=== PATIENT | male | born 1940 | race Caucasian/White ===

== ENCOUNTER 2021-02-19 13:01 | Inpatient (IN) | payer MEDICARE ==
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
[2021-02-19] MEDS ORDERED: CRESTOR5 MG PO (13:33)
[2021-02-19] MEDS ORDERED: ULTRAM50 MG PO (13:33)
[2021-02-19] MEDS ORDERED: K-TAB10 MEQ PO (13:33)
[2021-02-19] MEDS ORDERED: CELEXA20 MG PO (13:34)
[2021-02-19] MEDS ORDERED: GABAPENTIN300 MG PO (13:34)
[2021-02-19] MEDS ORDERED: PROTONIX20 MG PO (13:34)
[2021-02-19] MEDS ORDERED: ALBUTEROL2.5 MG/3 M INH (13:37)
[2021-02-19 14:07] LABS: BASOPHILS 0.4 % (0-2); CALCIUM 10.5 mg/dL (8.5-10.1); CARBON DIOXIDE 22.6 mmol/L (21.0-32.0); CREATININE - SERUM 1.4 mg/dL (0.6-1.3); EOSINOPHILS 0.6 % (0-7); HEMATOCRIT 40.8 % (42.0-54.0); HEMOGLOBIN 13.6 g/dL (13.5-17.5); IMMATURE GRANULOCYTES 0.1 % (0-5); LYMPHOCYTE ABS# 1.26 10x3/uL (1.32-3.57); LYMPHOCYTES 18.6 % (15-50); MCH 30.8 pg (26.0-34.0); MCHC 33.3 g/dL (31.0-37.0); MCV 92.3 fL (80.0-100.0); MEAN PLATELET VOLUME 8.9 fL (7.4-10.4); MONOCYTES 9.3 % (2-11); NEUTROPHIL ABS# 4.82 10x3/uL (1.78-5.38); PLATELET COUNT 353 10x3/uL (130-400); POTASSIUM - SERUM 3.6 mmol/L (3.5-5.1); RBC 4.42 10x6/uL (4.20-6.10); WBC 6.8 10x3/uL (4.8-10.8)
[2021-02-19 14:31] LABS: INR 1.08 (0.85-1.17)
[2021-02-19 14:38] LABS: BILIRUBIN - TOTAL 0.92 mg/dL (0.2-1.3); CHOL - HDL RATIO 2.1 ratio (2.3-4.9); LDL-HDL RATIO 0.9 ratio (1.5-3.5); MAGNESIUM - SERUM 2.3 mg/dL (1.8-2.4); THYROID STIMULATING HORMONE 1.18 uIU/mL (0.36-3.74)
--- NOTE | 2021-02-19 14:51 | NUR ---
DHS WORKER HEBER AT BEDSIDE.
[2021-02-19 15:41] LABS: BILIRUBIN NEGATIVE (NEGATIVE); KETONE SMALL mg/dL (NEGATIVE); NITRITE NEGATIVE (NEGATIVE); UROBILINOGEN NORMAL mg/dL (< 2)
[2021-02-19 15:46] LABS: BACTERIA FEW HPF (NONE SEEN)
[2021-02-19 16:10] LABS: UDS - AMPHET NEGATIVE QUAL (NEGATIVE); UDS - BARB NEGATIVE QUAL (NEGATIVE); UDS - BENZO NEGATIVE QUAL (NEGATIVE); UDS - COCAINE NEGATIVE QUAL (NEGATIVE); UDS - OPIATE NEGATIVE QUAL (NEGATIVE); UDS - PCP NEGATIVE QUAL (NEGATIVE); UDS - THC NEGATIVE QUAL (NEGATIVE)
[2021-02-19 22:26] VITALS: BP 156/65
[2021-02-19 23:04] VITALS: BP 156/65; BMI 20.9
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
[2021-02-20 08:00] VITALS: BP 164/60
--- NOTE | 2021-02-20 10:40 | NUR ---
NEW ORDER FROM DR. PRADO FROM [facility].
--- NOTE | 2021-02-20 10:44 | NUR ---
NURSE REPORTED TO DR. PRADO PT COUGHING ON THIN LIQUIDS AT THIS TIME. WILL CONSULT [facility].
--- NOTE | 2021-02-20 11:00 | NUR ---
NURSE SPOKE TO JANNY AT [facility] IN [place] TO VERIFY PTS MED LIST AT THIS TIME. SHE STATED HE HAD NO MEDICATIONS FILLED THERE EXCEPT ON 01/18/21. SHE THIN[facility] THAT [facility] NURSE STATED SHE WOULD ATTEMPT TO CALL THE [facility] FOR MED LIST.
--- NOTE | 2021-02-20 11:23 | NUR ---
NURSE SPOKE WITH EMA WOOD AT [facility] ABOUT PT MEDICATION LIST. HE WAS UNAWARE. NURSE STATED SHE HAD SPOKEN TO [facility] AND THE PHARMACY DID NOT HAVE AN UPDATED MED LIST DUE TO PT MEDICATIONS [facility]ING FROM THE [facility]. NURSE STATED IF MR. WOOD COULD OBTAIN A MED LIST. HE STATED HE WOULD ATTEMPT TO OBTAIN A MEDICATION LIST.
--- NOTE | 2021-02-20 11:49 | NUR ---
NURSE BANDAGE SKIN TEAR ON ELBOW AT THIS TIME.
[2021-02-20 13:39] VITALS: Wt 60.7 kg
--- NOTE | 2021-02-20 15:53 | NUR ---
THIS NURSE SPOKE WITH [facility] AT THIS TIME. FAXING OVER A COPY OF PTS MEDICATIONS PER REQUESTED.
--- NOTE | 2021-02-20 16:00 | NUR ---
[facility] LIDIA Bowen HERE TO SEE PT AT THIS TIME. NECTAR THICKEN LIQUIDS ORDERED.
--- NOTE | 2021-02-20 16:15 | NUR ---
Patient rec'd this am lying on the bed. He is very thin and is bent over at the waist and his bent over gait puts him a fall risk. He is very confused and will keep coming out of his room, thinking the nurse desk, is the "bank" and he needs "money".He is in droplet precaution for pending covid admission results. He will ask the staff the same questions over and over again. He has been very coorperative and can be directed and redirected as needed. He is med compliant and took his med whole. He is on an ABT. He has skin tears to his left posterior forearms and a reddened coccyx.
--- NOTE | 2021-02-20 17:02 | NUR ---
[facility] AT THIS [facility]. MADE DR. VAZQUEZ AWARE OF MEDICATION LIST.
[2021-02-20] MEDS ORDERED: ACETAMINOPHEN500 M1 PO (17:15)
[2021-02-20] MEDS ORDERED: BAYER CHEWABLE81 MG PO (17:16)
[2021-02-20] MEDS ORDERED: CALCIUM 600 +1 EAC3 PO (17:17)
[2021-02-20] MEDS ORDERED: VITAMIN B-12100 MCG PO (17:18)
[2021-02-20] MEDS ORDERED: VOLTAREN100 GM TOPICAL (17:19)
[2021-02-20] MEDS ORDERED: CYMBALTA60 MG PO (17:20)
[2021-02-20] MEDS ORDERED: DONEPEZIL HCL10 MG PO (17:20)
[2021-02-20] MEDS ORDERED: PROSCAR5 MG PO (17:21)
[2021-02-20] MEDS ORDERED: FLUTICASONE PRO16 GM NASAL (17:22)
[2021-02-20] MEDS ORDERED: LIDODERM 5 %1 PATCH TRANSDERM (17:22)
[2021-02-20] MEDS ORDERED: PROCARDIA XL60 MG PO (17:23)
[2021-02-20] MEDS ORDERED: K-DUR20 MEQ PO (17:23)
[2021-02-20] MEDS ORDERED: CRESTOR10 MG PO (17:24)
[2021-02-20] MEDS ORDERED: DIOVAN160 MG PO (17:24)
[2021-02-20 20:00] VITALS: BP 154/80
--- NOTE | 2021-02-20 20:36 | NUR ---
RECEIVED PATIENT IN HIS ROOM, HE HAS SOME CONFUSION, HE THINKS HE IS AT [facility] AND THAT HE IS HERE TO RUN A RACE, HE ALSO SAID "I DON'T HAVE DEMENTIA ANYMORE, I HAD IT 3 YEARS AGO BUT I' HEALED NOW". COMPLIANT WITH MEDS. WILL FOLLOW POC
[2021-02-21 08:13] LABS: RAPID PLASMA REAGIN Non Reactive (Non Reactive)
[2021-02-21 08:55] VITALS: BP 154/58
--- NOTE | 2021-02-21 09:46 | NUR ---
[facility] CALLED TO OBTAIN PT ADMIT DATE, DIAGNOSIS AND WALKING DRAGLINE OILER NAME. NURSE SPOKE WITH SOICAL WORKER AND PROVIDED INFORMATION FOR [facility]. SHE STATED THEY WERE DOING PHYSICAL THERAPY FOR PT IN THE HOME. SHE THANKED NURSE.
--- NOTE | 2021-02-21 14:45 | NUR ---
PT BECAME AGGRESSIVE WITH STAFF MEMEBER STATING SHE RAN OVER HER FOOT WITH THE W/C. UNABLE TO REDIRECT BEHAVIORS. HALDOL 2 MG IM GIVEN PER ORDER. WILL CONT TO MONITOR BEHAVIORS.
--- NOTE | 2021-02-21 15:45 | NUR ---
MEDICATION NOT EFFECTIVE AT THIS TIME. CONSTANT REDIRECT AND 1:1 STAFF AT ALL TIMES.
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
--- NOTE | 2021-02-21 17:50 | NUR ---
PT SITTING IN NURSES STATION AT THIS TIME. PT IS RESTLESS, ARGUMENTATIVE AND UNABLE TO REDIRECT. CONFUSED. ALERT TO SELF ONLY. DIFFCULT TO REDIRECT. REORIENT AND REDIRECT NEEDED AND OFTEN. UNSTEADY GAIT. UNABLE TO MAKE NEEDS KNOWN. PT IN VISUAL SIGHT AT ALL TIMES. COMPLIANT WITH MEDS, VITALS AND ASSESSMENTS. CHAIR AND BED ALARM IN PLACE AND ACTIVE. WILL CONT PLAN OF CARE.
[2021-02-21 20:00] VITALS: BP 147/48
--- NOTE | 2021-02-22 01:40 | NUR ---
B) Patient is alert and oriented to self, very confused and restless, unable to be redirected, poor short term memory, constant 1:1 when awake, I) Administered scheduled medications as ordered, monitored for safety, redirected as needed, R) Medication compliant, sleeping soon after HS medications wrapped in warm blankets, P) Continue plan of care.
--- NOTE | 2021-02-22 08:34 | NUR ---
LAB CALLED TO REPORT NEGATIVE SARS-19
[2021-02-22 09:24] LABS: ANION GAP 13.3 mmol/L (8-16); CALCIUM 9.5 mg/dL (8.5-10.1); CARBON DIOXIDE 28.1 mmol/L (21.0-32.0); CREATININE - SERUM 1.2 mg/dL (0.6-1.3); POTASSIUM - SERUM 3.4 mmol/L (3.5-5.1)
[2021-02-22 10:00] VITALS: BP 137/60
--- NOTE | 2021-02-22 17:23 | NUR ---
Patient has been in the dayroom most all day and started out with being pleasant with the staff but as the afternoon progressed, he has become very aggressive and augumentive. He will continue to ask questions to the staff but he will not wait for their response and then will argue they didn't answer him. He has called the staff "a bitch", he has yelled at the staff and attempted to manipulate them. The staff has attempted to redirect him and give him positive feeback with each behavior episode but he is being non re-directable. Cj MICHAEL given. Patient sitting quietly now.
[2021-02-22 20:00] VITALS: BP 148/59
--- NOTE | 2021-02-22 21:53 | NUR ---
PT ALERT AND ORIENTED TO SELF ONLY. RECEIVED IN A GERICHAIR OUTSIDE THE NURSES STATION. NO AGGRESSION NOTED. COMPLIANT WITH ALL MEDICATIONS. EASY TO REDIRECT. PROVIDED HS SNACK AND ASSISTED TO BED WITH WARM BLANKET. MONITOR FOR SAFETY.
[2021-02-23 08:45] VITALS: BP 155/73
--- NOTE | 2021-02-23 18:22 | NUR ---
ORIENTED TO SELF ONLY.COMPLIANT WITH STAFF AND MEDS.NO AGGRESSION OBSERVED TODAY.WILL CONTINUE WITH CURRENT PLAN OF CARE,MONITOR FOR CHANGES AND SAFETY.
[2021-02-23 20:00] VITALS: BP 165/66
--- NOTE | 2021-02-23 21:18 | NUR ---
PT IS ALERT AND ORIENTED TO SELF ONLY. POOR INSIGHT INTO HIS SITUATION. OBSERVED PT YELLING AT STAFF. STATED " I AM NOT GOING TO LISTEN TO YOU. I WANT TO SPEAK TO THE CARTON GLUING MACHINE OPERATOR." EASY TO REDIRECT BUT EASILY AGITATED. RESTLESS AND ATTEMPTS TO GET UP WITHOUT ASSIT. COMPLIANT WITH ALL HS MEDICATIONS. VERY UNSTEADY GAIT. MONITOR FOR SAFETY.
[2021-02-24 07:30] LABS: ANION GAP 13.7 mmol/L (8-16); CALCIUM 9.5 mg/dL (8.5-10.1); CARBON DIOXIDE 28.9 mmol/L (21.0-32.0); CREATININE - SERUM 1.1 mg/dL (0.6-1.3); POTASSIUM - SERUM 3.6 mmol/L (3.5-5.1)
[2021-02-24 08:22] VITALS: BP 148/56
--- NOTE | 2021-02-24 15:07 | NUR ---
GT BELT, PATIENT MIN ASST TO GET UP TO BEDSIDE AND TO STAND. PATIENT WALKED 110 FEET WITH MIN ASST USING WALKER, BUT PATIENT WOULD TAKE SHORT AND SHUFFLY STEPS AND PUSH WALKER TOO FAR AWAY FROM HIM, MAKING HIM MORE UNSTEADY.
--- NOTE | 2021-02-24 15:45 | NUR ---
Rec'd patient this am lying in bed. Fall alarm in place and functioning. He is A/O to his self. He has a lot of confusion. He is med compliant and takes his meds whole. He can be calm and cooperative to being impulsive, demanding, and sarcastic. He is not directable or redirectable most of the time. Staff will continue to encourage group activity participation.
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
--- NOTE | 2021-02-24 20:01 | NUR ---
RECEIVED IN BEDROOM. RESTING IN BED WITH EYES CLOSED. RESPONS TO VOICE. CALM AND COOPERATIVE WITH CARE AND ASSESSMENT. NO SIGNS OF AGGRESSION. REDIRECT AND REORIENT NEEDED. CONTINUES TO REST QUIETLY IN BED. CONTINUE PLAN OF CARE.
[2021-02-24 21:20] VITALS: BP 134/59
[2021-02-25 08:00] VITALS: BP 112/58
--- NOTE | 2021-02-25 08:54 | PN ---
PATIENT:ARLIN GRIFFITH MEDICAL RECORD: [id number] LOCATION:YESY [facility]enCharity112 ADMISSION DATE: 02/19/21 PROGRESS NOTE DATE OF SERVICE: 02/21/2021 SUBJECTIVE: The patient's case was discussed with staff. He has no new complaint. OBJECTIVE: The patient is disorganized and severely impaired cognitively. He has been very aggressive verbally and physically with staff. He also is an extremely high fall risk and is not following directions regarding safety. He is currently going to be treated with both mood stabilizing and anxiolytic medication. His prognosis is guarded. TRANSINT:[id number] Voice Confirmation ID: [id number] DOCUMENT ID: [id number] TADEO VAZQUEZ MD at 0854 CC: [id number] DICTATION DATE: 02/21/211657 LICENSED SALES PRODUCER: 02/21/212113 ADM IN [id number] [place] [address]
--- NOTE | 2021-02-25 10:02 | NUR ---
TJ SPOKE TO PT'S POA YOVANY RÍOS. HE PROVIDED THE POA PAPERWORK TO MEDICAL RECORDS. ELI STATED SHE SCANNED THEM IN. TJ GAVE POA PASSWORD AND NUMBER TO UNIT. PT WILL NEED TO BE PLACED INTO LTC DUE TO PT'S 'S CONDITION. YOVANY STATED HE WOULD CONTACT AND GIVE HER UNIT NUMBER TO CALL TO GET UPDATES ON PT. [facility] AND [facility] ARE NURSING HOMES POJerri WANTS REFERRALS SENT TO. TJ EDUCATED ON DISEASE PROGRESSION, DIFFERENT LEVELS OF CARE, PT'S CONDITION AND BEHAVIORS, THE IMPORTANCE OF A MEMORY CARE UNIT, AND UNIT ORIENTATION. NO OTHER NEEDS WERE VOICED AT THIS TIME.
--- NOTE | 2021-02-25 10:42 | NUR ---
Nutrition Follow-up: Diet: Regular [place] Thickened Liquids PO intake: ~86% average x last 8 meals recorded Last BM: 02/20/21 Wt: 128# (02/24/21); Admit Wt: 133# (02/19/21) Meds and labs reviewed. Noted -5# wt change. PO intake is adequate for now. Will continue to monitor wt trend. Recommend continue PO diet per CHILD STUDY TEAM DIRECTOR recommendations. RD will follow-up 02/27/21.
--- NOTE | 2021-02-25 11:42 | NUR ---
GT BELT, PATIENT MIN ASST TO STAND FROM WHEELCHAIR AND TO WALK IN POLO FOR 110 FEET USING WALKER, BUT PATIENT PUSHES THE WALKER TOO FAR IN FRONT OF HIM WHILE ALSO TAKING SHORT STEPS, MAKING HIM A FALL RISK.
--- NOTE | 2021-02-25 16:16 | NUR ---
PATIENT GETTING QUITE ANXIOUS ABOUT PUTTING GAS IN HIS CAR, BECOMING INCREASINGLY AGITATED. STATES THAT HIS CAR IS IN THE PARKING LOT AND HE MUST GO GAS IT UP SO THAT HE CAN GO TO [facility] [employer] WHICH IS ABOUT 100 MILES AWAY. HALDOL 2 MG ADMIN PO.
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
--- NOTE | 2021-02-25 20:44 | NUR ---
REECIVED IN BEDROOM. RESTING QUIETLY IN BED WITH EYES OPEN. CALM AND COOPERATIVE WITH CARE AND ASSESSMENT. NO SIGNS OF AGGRESSION. REDIRECT AND REORIENT NEEDED. NURSE IN ROOM AT BEDSIDE PASSING PM MEDS AT THIS TIME. CONTINUE PLAN OF CARE.
[2021-02-25 21:42] VITALS: BP 131/54
[2021-02-26 14:19] VITALS: BP 157/66
--- NOTE | 2021-02-26 14:19 | PN ---
PATIENT:ARLIN GRIFFITH MEDICAL RECORD: [id number] LOCATION:YESY [facility]112 ADMISSION DATE: 02/19/21 PROGRESS NOTE DATE OF SERVICE: 02/25/2021 SUBJECTIVE: The patient's case was discussed with staff. He has no new complaint. OBJECTIVE: The patient is in good behavioral control with limited insight about his condition. ASSESSMENT: Dementia. PLAN: The patient's is critically ill. There is a POA, who has been identified and will seek placement for the patient in the assisted. I agree with this level of care. He does need 24-hour a day supervision without any doubt, what is debatable is what situation is the least restrictive and as long as his is incapacitated, there does not appear to be anyone who could even begin to provide the services. TRANSINT:[id number] Voice Confirmation ID: [id number] DOCUMENT ID: [id number] TADEO VAZQUEZ MD at 1419 CC: [id number] DICTATION DATE: 02/25/21 1617 COMPUTER MECHANIC: 02/25/21 2302 ADM IN [facility] [address] [id number]
--- NOTE | 2021-02-26 16:59 | NUR ---
PT SITTING IN W/C AT THIS TIME. PT IS CONFUSED. REDIRECT AND REORIENT NEEDED. PT IS COOPERATIVE WITH STAFF AT TIMES. COMPLIANT WITH MEDS, VITALS AND ASSESSMENTS. PT CAN MAKE NEEDS KNOWN. PT CAN BE ARGUMENATIVE AT TIMES. REDIRECT BEHAVIOR. REQUIRES ASSISTANCE WITH ADLS. BED AND CHAIR ALARM IN PLACE AND ACTIVE. WILL CONT PLAN OF CARE.
--- NOTE | 2021-02-26 18:51 | NUR ---
PT CALLED FROM [facility] AT THIS TIME. [facility] NURSE GAVE PASSCODE. PT WAS HAPPY TO SPEAK WITH AT THIS TIME.
--- NOTE | 2021-02-26 20:16 | NUR ---
RECEIVED IN HALLWAY OUTSIDE OF NURSES STATION. SITTING CALM SOCIALIZING WITH A PEER. CALM AND COOPERATIVE WITH CARE AND ASSESSMENT. NO SIGNS OF AGGRESSION. REDIRECT AND REORIENT NEEDED. CONTINUES TO SIT CALMLY IN HALLWAY. CONTINUE PLAN OF CARE.
[2021-02-26 21:50] VITALS: BP 137/63
--- NOTE | 2021-02-27 08:00 | NUR ---
RECEIVED PATIENT IN BED WITH EYES CLOSED. RESPONDS TO VERBAL STIMULI. AWAKE AND ALERT TO PERSON ONLY AT THIS TIME. CALM AND COOPERATIVE WITH ASSESSMENT. PRESCRIBED MEDICATIONS PROVIDED ORDERED. MED COMPLIANT. NO AGGRESSION NOTED AT THIS TIME. PATIENT HAS LITTLE TO NO INSIGHT INTO HIS SITUATION. rEDIRECT AND REORIENT NEEDED. FALL PRECAUTIONS IN PLACE FOR SAFETY. WILL CONTINUE PLAN OF CARE.
[2021-02-27 09:22] VITALS: BP 174/70
--- NOTE | 2021-02-27 11:17 | NUR ---
feed in worker attempted to call patient's D[facility] but was unable to leave voicemail due to voicemail being full. feed in worker has been contacted by Ashish, patient's POA, and discuss discharge planning needs at this time. Patient is going to need a lockdown memory care unit for treatment. Ashish stated Dyan is not able to take care of her at this time. Ashish wanted long-term care placement for patient. His first choice is for snf placement were [facility] and rehab and [facility]. feed in worker will do referral. No other needs at this time.It has been reported is still hospitalized at this time.
--- NOTE | 2021-02-27 15:03 | PN ---
PATIENT:ARLIN GRIFFITH MEDICAL RECORD: [id number] LOCATION:JessiDEVANTEJosue [facility]igle112 ADMISSION DATE: 02/19/21 PROGRESS NOTE DATE OF SERVICE: 02/26/2021 SUBJECTIVE: The patient's case was discussed with staff. He has no new complaint. OBJECTIVE: The patient has been in good behavioral control and has not been disruptive. I think the improvement in his behaviors is related to the highly structured and supportive environment in which he finds himself. ASSESSMENT: Dementia. PLAN: I am going to increase the patient's Lexapro slightly. I believe he is going to need 24 hour a day supervision and the process planner is going to refer him to the [facility] in [place]. TRANSINT:[id number] Voice Confirmation ID: [id number] DOCUMENT ID: [id number] TADEO VAZQUEZ MD at 1503 CC: [id number] DICTATION DATE: 02/26/21 172 FLAME PLANER: 02/26/21 2340 ADM IN [address] [id number]
--- NOTE | 2021-02-27 15:42 | NUR ---
GT BELT, PATIENT MIN ASST TO STAND AND TO WALK 130 FEET USING WALKER. PATIENT TOOK BETTER STEPS TODAY AND MOSTLY USED THE WALKER BETTER WELL.
--- NOTE | 2021-02-27 15:43 | NUR ---
Nutrition Re-Assessment: Diet: Regular, nectar thickened liquids PO intake: 95-100% Last BM: 02/27/21 Wt: 128# (02/24/21); Admit Wt: 133# (02/19/21) - noted -5# wt loss, PO intake is adequate, may be 2/2 fluid?, will continue to monitor. Meds noted: k-dur, abx Labs reviewed Estimated nutrition needs: [id number] (25-30 ABW), 58-70gms protein (1-1.2), 1500-1800mL fluid (or per MD) Nutrition diagnosis: Swallowing difficulty r/t dysphagia dx AEB PODIATRY PROFESSOR rx diet of nectar thickened liquids for safe PO swallow. Nutrition goals: -PO intake >75% -Dry weight stable Recommendations/Interventions: -Continue current/or per PODIATRY PROFESSOR recommendations. -Will continue to honor food preferences within diet restrictions. -RD will follow-up within 7 days.
[2021-02-27 20:00] VITALS: BP 128/57
--- NOTE | 2021-02-27 23:21 | NUR ---
PT IS ALERT AND ORIENTED TO SELF ONLY. POOR INSIGHT INTO HIS SITUATION. RECEIVED IN A GERICHAIR OUTSIDE THE NURSES STATION. OBSERVED PT ATTEMPTING TO WALK WITHOUT ASSIST. EASY TO REDIRECT BUT REQUIRES CONSTANT REDIRECTION. VERY UNSTEADY GAIT. COMPLIANT WITH ALL MEDICATIONS. CAN GET A LITTLE AGITATED WITH STAFF AT TIMES. DENIES ANY NEEDS AT THIS TIME. MONITOR FOR SAFETY.
--- NOTE | 2021-02-28 09:57 | NUR ---
GT BELT, PATIENT MIN ASST TO STAND AND TO WALK 130 FEET USING WALKER.
[2021-02-28 09:58] VITALS: BP 145/59
--- NOTE | 2021-02-28 11:38 | PN ---
PATIENT:ARLIN GRIFFITH MEDICAL RECORD: [id number] LOCATION:YESY [facility]112 ADMISSION DATE: 02/19/21 PROGRESS NOTE DATE OF SERVICE: 02/27/2021 SUBJECTIVE: The patient's case was discussed with staff. He has no new complaint. OBJECTIVE: The patient is partially oriented. He is very confused about the circumstances related to his and what is going to happen, and even though it has been explained to him many times he simply cannot retain the information. He becomes very distressed about her, is reassured and then a few minutes later he is very distressed about her situation. ASSESSMENT: Dementia. PLAN: The patient will be maintained on current medications. My understanding is at this point, he is going to be referred to a detention. TRANSINT:[id number] Voice Confirmation ID: [id number] DOCUMENT ID: [id number] TADEO VAZQUEZ MD at 1138 CC: [id number] DICTATION DATE: 02/27/21 1526 PARKING RAMP ATTENDANT: 02/27/21 1711 ADM IN [facility] [address] [place] [address]
--- NOTE | 2021-02-28 14:38 | NUR ---
Patients behaviors have been escalating all day. He has been sarcastic, demanding, disruptive and a potenial threat of injury to himself. He is attempting to rise without assistance and cannot stand, transfer, or ambulate by himself. He has used hand sign language and gestures inappro. to the staff today. He is part of the time redirectable but staff will continue today to monitor his esculations and medicate as needed.
[2021-02-28 20:00] VITALS: BP 131/48
--- NOTE | 2021-02-28 20:34 | NUR ---
RECEIVED PATIENT IN THE HALLWAY IN WHEELCHAIR, HE IS CONFUSED, VERY ARGUMENTATIVE, CONTINOUSLY TRYING TO GET OUT OF HIS CHAIR. HAVING TO BE REDIRECTED VERY OFTEN WITH NO RESULTS. COMPLIANT WITH MEDS. WILL FOLLOW POC
[2021-03-01 08:30] VITALS: BP 146/57
[2021-03-01 09:27] VITALS: BP 146/57
--- NOTE | 2021-03-01 14:06 | NUR ---
GT BELT, PATIENT MIN ASST TO STAND AND TO WALK 120 FEET USING WALKER. PATIENT TOOK SHORT, CHOPPY STEPS AND PUSHES THE WALKER TOO FAR IN FRONT OF HIM AND HAS TO BE REMINDED TO TAKE BIGGER STEPS AND KEEP CLOSE TO WALKER.
--- NOTE | 2021-03-01 14:46 | NUR ---
Patient in the dayroom with other patients and staff and attempts to argue with director of learning..he is becoming difficult as she is attempting to re-direct him but he continues to refuse. He is a potential for self harm as he is attempting to rise without assistance. He lifted his voice and swing his arms at the AD as she was attempting to assist him to a sitting position. Per MD order, Geodon 20mg IM given.
--- NOTE | 2021-03-01 16:56 | NUR ---
PRN EFFECTIVE AT THIS TIME.
--- NOTE | 2021-03-01 18:41 | NUR ---
PT ARGUMENATIVE, VERY DIFFICULT TO REDIRECT, EXIT SEEKING, AGRESSIVE WITH CARE. STAFF CONSTANTLY REDIRECTS PT. HALDOL 2 MG IM ADMINISTERED PER PRN ORDER. WILL CONT TO MONITOR.
[2021-03-01 20:00] VITALS: BP 115/55
--- NOTE | 2021-03-01 20:06 | NUR ---
PT IS ALERT AND ORIENTED TO SELF ONLY. RECEIVED IN A WHEELCHAIR IN THE HALLWAY OUTSIDE THE NURSES STATION. RESTLESS AND DEMANDING. DIFFICULT TO REDIRECT. AGITATION WITH REDIRECTION. COMPLIANT WITH ALL MEDICATIONS. MONITOR FOR SAFETY.
[2021-03-02 08:00] VITALS: BP 152/74
--- NOTE | 2021-03-02 17:47 | NUR ---
ALERT, CALM, PLEASANT, NO ADVERSE BEHAVIORS. REQUIRES FREQUENT RE-DIRECTION TO NOT AMBULATE WITHOUT ASSISTANCE DUE TO UNSTEADY GAIT. MEDS ADMIN PER ORDERS WITH COMPLETE MED COMPLIANCE NOTED. WHISKERS SHAVED PER PATIENT REQUEST. CONTINUE PLAN OF CARE.
[2021-03-02 20:00] VITALS: BP 134/75
--- NOTE | 2021-03-02 22:53 | NUR ---
B)RECEIVED PATIENT SITTING IN A WHEELCHAIR AT THE NURSE'S STATION. ORIENTED TO PERSON AND PLACE. POOR INSIGHT RELATING THE REASON FOR HOSPITLIZATION "I'VE BEEN HERE BEFORE. FREQUENTLY ATTEMPTS TO STAND UNASSISTED HOWEVER IS QUIET UNSTEADY. I)ADMINISTER MEDS AND MONITOR COMPLIANCE. REORIENT NEEDED. R)MED COMPLIANT. POOR REORIENTATION DUE IMPAIRED ABILITY TO PROCESS AND RETAIN INFORMATION. P)CONTINUE POC AND PROVIDE SAFE ENVIRONMENT.
[2021-03-03 08:00] VITALS: BP 130/61
--- NOTE | 2021-03-03 08:00 | NUR ---
Received patient in hallway sit in wheelchair by nurses station. Calm and cooperative with assessment at this time. Prescribed medications provided as ordered. Med compliant. No behaviors noted at this time. However patient is very restless and continues to get up without assistance from staff. Redirect and reorient as needed. Fall precautions in place for safety. Will continue plan of care.
--- NOTE | 2021-03-03 12:47 | NUR ---
Patient is exit seeking. Banging on the double doors at this time. Unable to redirect per staff. Patient is yelling and cussing at staff at this time. As needed Haldol 2 mg IM given per as needed orders. Will continue plan of care.
--- NOTE | 2021-03-03 20:03 | NUR ---
RECEIVED IN BEDROOM. RESTING QUIETLY IN BED WITH EYES CLOSED. RESPONDS TO VOICE. CALM AND COOPERATIVE WITH CARE AND ASSESSMENT. NO SIGNS OF AGGRESSION. REDIRECT AND REORIENT NEEDED. CONTINUES TO REST QUIETLY IN BED. CONTINUE PLAN OF CARE.
[2021-03-03 21:12] VITALS: BP 106/49
[2021-03-04 08:00] VITALS: BP 126/61
--- NOTE | 2021-03-04 10:43 | NUR ---
PATIENT EXPERIENCING AGITATION AND ANXIETY, HITTING AT STAFF. HALDOL 2 MG ADMIN IM RIGHT DELTOID, SULEMA WELL.
--- NOTE | 2021-03-04 10:43 | NUR ---
PATIENT EXPERIENCING AND ANXIETY AND PSYCOTIC SYMPTOMS, HALDOL 2 MG ADMIN IM. SULEMA WELL.
--- NOTE | 2021-03-04 13:42 | NUR ---
GT BELT, PATIENT MIN ASST TO STAND AND TO WALK IN POLO FOR 130 FEET USING WALKER.
--- NOTE | 2021-03-04 15:16 | PN ---
PATIENT:ARLIN GRIFFITH MEDICAL RECORD: [id number] LOCATION:[facility] ADMISSION DATE: 02/19/21 PROGRESS NOTE DATE OF SERVICE: 02/28/2021 SUBJECTIVE: The patient's case was discussed with staff. He has no new complaint. OBJECTIVE: The patient has been seriously agitated and disruptive in a way that has required p.r.n. medications to calm him. He has almost no insight about these behaviors. ASSESSMENT: Dementia. PLAN: The patient will be treated with a low dose of Seroquel to assist with his agitated behavior. His long-term prognosis is guarded. TRANSINT:[id number] Voice Confirmation ID: [id number] DOCUMENT ID: [id number] TADEO VAZQUEZ MD at 1516 CC: [id number] DICTATION DATE: 02/28/21 1629 CLINICAL LABORATORY AIDE: 02/28/21 1807 ADM IN [place] [id number] [place] [address]
--- NOTE | 2021-03-04 20:53 | NUR ---
RECEIVED IN HALLWAY OUTSIDE OF NURSES STATION. RESTLESS IN HIS WHEELCHAIR. ATTEMPTS TO STAND WITHOUT ASSIST. SANDRA ALARM SOUNDING. CALM AND COOPERATIVE WITH CARE AND ASSESSMENT. NO SIGNS OF AGGRESSION. REDIRECT AND REORIENT NEEDED. CONINUES TO SIT IN HALLWAY. RESTLESS AT TIMES. CONTINUE PLAN OF CARE.
[2021-03-04 20:59] VITALS: BP 131/65
--- NOTE | 2021-03-04 21:16 | NUR ---
PT CONTINUES TO BED RESTLESS. INCREASING ANXIETY. ATTEMPTS TO STAND WITHOUT ASSIST CONSTANTLY. VERY UNSTEADY. PRN HALDOL 2 MG IM GIVEN OF UNSAFE PSYCHOTIC BEHAVIOR. CONTINUE TO MONITOR FOR SAFETY.
--- NOTE | 2021-03-04 22:30 | NUR ---
RESTING QUIETLY IN BED WITH EYES CLOSED.
[2021-03-05 08:00] VITALS: BP 147/68
--- NOTE | 2021-03-05 11:52 | NUR ---
GT BELT, PATIENT WAS MIN ASST TO STAND BUT WAS MOD ASST TO WALK 20 FEET USING WALKER. PATIENT TOOK SHORT, CHOPPY STEPS AND FATIGUED QUICKLY.
--- NOTE | 2021-03-05 15:49 | PN ---
PATIENT:ARLIN GRIFFITH MEDICAL RECORD: [id number] LOCATION:[facility]112 ADMISSION DATE: 02/19/21 PROGRESS NOTE DATE OF SERVICE: 03/04/2021 SUBJECTIVE: The patient's case was discussed with staff. He has no new complaint. OBJECTIVE: The patient is in poor behavioral control. He easily becomes agitated. He did require p.r.n. medication both yesterday and today because of this agitation. ASSESSMENT: Dementia. PLAN: The patient will be changed from Seroquel to Geodon. I am also going to add a low dose of Klonopin. His long-term prognosis is guarded. TRANSINT:[id number] Voice Confirmation ID: [id number] DOCUMENT ID: [id number] TADEO VAZQUEZ MD at 1549 CC: [id number] DICTATION DATE: 03/04/21 1647 CANINE SERVICE INSTRUCTOR TRAINER: 03/04/21 2301 ADM IN [facility] [address] [place] [address]
--- NOTE | 2021-03-05 15:53 | NUR ---
RECEIVED THIS AM SITTING IN RECLINER AT NURSES STATION.ORIENTED TO SELF ONLY.WILL ASK THE SAME QUESTION OVER AND OVER AND MAKE THE SAME STATEMENT OVER AND OVER.COMPLIANT WITH MEDS.IS ON THICKENED LIQUIDS.INCONTINENT OF URINE.NO AGGRESSION OBSERVED TODAY.WILL CONTINUE WITH CURRENT PLAN OF CARE,MONTOR FOR CHANGES AND SAFETY.
[2021-03-05 20:30] VITALS: BP 156/59
--- NOTE | 2021-03-05 20:33 | NUR ---
RECEIVED IN DAYROOM. SITTING AT THE TABLE IN A RECLING CHAIR WITH PEERS AT HIS SIDE. CALM AND COOPERATIVE WITH CARE AND ASSESSMENT. NO SIGNS OF AGGRESSION. REDIRECT AND REORIENT NEEDED. CONTINUES TO SIT CALMLY IN DAYROOM. CONTINUE PLAN OF CARE.
[2021-03-06 08:00] VITALS: BP 139/67
--- NOTE | 2021-03-06 11:27 | NUR ---
GT BELT, PATIENT MIN ASST TO STAND AND MIN-MOD ASST TO WALK 120 FEET USING WALKER. PATIENT TAKES SHORT, CHOPPY STEPS AND PUSHES THE WALKER TOO FAR IN FRONT OF HIM.
--- NOTE | 2021-03-06 15:20 | NUR ---
PT SITTING IN DAYAREA. CONFUSION NOTED. ALERT TO PERSON ONLY. REDIRECT AND REORIENT NEEDED. LACKS INSIGHT TO SITUATION. UNABLE TO MAKE NEEDS KNOWN. PT CONTS TO BE DEMANDING, INTRUSIVE, DISRUPTIVE, IMPULSIVE AND AGRESSIVE WITH REDIRECTION. STAFF REPORTED DURING GROUPS PT REFUSED TO GIVE BACK OBJECT AND THEN PROCEEDED TO RIP UP OBJECT WHILE STARING AT ACTIVITES DIRECTOR. PT THREATEN TO HARM ASSEMBLY ROOM SUPERVISOR WELL. UNABLE TO REDIRECT PTS BEHAVIOR. PT IS RESTLESS THINKING HE HAS TO DO SOMETHING. COMPLIANT WITH MEDS, VITALS AND ASSESSMENTS AT TIMES. REQUIRES 1X ASSISTANCE WITH ADLS. CONT WITH BED AND CHAIR ALARM. WILL CONT PLAN OF CARE.
--- NOTE | 2021-03-06 15:25 | NUR ---
Nutrition Re-Assessment Diet: Regular [place] Thickened Liquids PO intake: ~89% average x last 9 meals Last BM: 03/06/21 Wt: 132# (03/03/21); 133# (02/19/21) Meds noted: k-dur No new chem labs Estimated nutrition needs: [id number] (25-30 ABW), 58-70gms protein (1-1.2), 1500-1800mL fluid (or per MD) Nutrition diagnosis: Swallowing difficulty r/t dysphagia dx AEB FORESTRY FARM LABORER rx diet of nectar thickened liquids for safe PO swallow. Nutrition goals: -PO intake >75% -Dry weight Stable Recommendations/Interventions: -Continue current diet/or per FORESTRY FARM LABORER recommendations. -Will continue to honor food preferences within diet restrictions -Will follow-up within 7 days.
--- NOTE | 2021-03-06 18:24 | NUR ---
Rec'd patient this am sitting in a recliner w/c. He is med compliant and takes meds whole. He became verbally offensive and combative with staff and other patients this am.He is restless and aggressive behavior. Per MD orders, Avinash MICHAEL given.
[2021-03-06 20:00] VITALS: BP 155/48
--- NOTE | 2021-03-06 23:03 | NUR ---
RECEIVED PATIENT ON NURSES'S STATION, HE IS VERY FIGIDITY, HARD TO REDIRECT, HAD TO PLACE IN NURSE'S STATION TO KEEP CLOSE BY FOR HIS SAFETY, COMPLIANT WITH MEDS. WILL FOLLOW POC
[2021-03-07 08:00] VITALS: BP 126/68
--- NOTE | 2021-03-07 11:16 | PN ---
PATIENT:ARLIN GRIFFITH MEDICAL RECORD: [id number] LOCATION:YESY [facility] ADMISSION DATE: 02/19/21 PROGRESS NOTE DATE OF SERVICE: 03/05/2021 SUBJECTIVE: The patient's case was discussed with staff. He has no new complaint. OBJECTIVE: The patient denies intent to harm himself or others. He is tolerating his medicines well. ASSESSMENT: Dementia. PLAN: The patient is calmer today. I believe that this is related to the medication changes from yesterday, but I will need to watch him to make sure he does not become over sedated tomorrow or the next day. I think he is appropriate for rehabilitative services. He is not able to walk without holding on to something, but for some mysterious reason, his insurance company has denied his stay in a rehabilitation center. At this point, he is likely to need long-term care since he is not able to live independently and his is hospitalized. They have no children, so there is no one who can care for him at home. TRANSINT:[id number] Voice Confirmation ID: [id number] DOCUMENT ID: [id number] TADEO VAZQUZE MD at 1116 CC: [id number] DICTATION DATE: 03/05/21 1702 WAIST PLEATER: 03/05/21 2331 ADM IN [place] [id number] [place] [address]
--- NOTE | 2021-03-07 11:16 | PN ---
PATIENT:ARLIN GRIFFITH MEDICAL RECORD: [id number] LOCATION:YESY [facility] ADMISSION DATE: 02/19/21 PROGRESS NOTE DATE OF SERVICE: 03/06/2021 SUBJECTIVE: The patient's case was discussed with staff. He has no new complaint. OBJECTIVE: The patient has been significantly agitated and disruptive. ASSESSMENT: Dementia. PLAN: Current medicines have been reviewed. I am going to treat him with Namenda and will maintain his other medicines as they are for today. TRANSINT:[id number] Voice Confirmation ID: [id number] DOCUMENT ID: [id number] TADEO VAZQUEZ MD at 1116 CC: [id number] DICTATION DATE: 03/06/21 165 OUTSIDE MAINTENANCE WORKER: 03/07/21 0036 ADM IN [place] [id number] [place] [id number]
--- NOTE | 2021-03-07 12:59 | NUR ---
TJ SPOKE TO PT'S MEDICAL POA YOVANY RÍOS. SW UPDATED HIM ON DISCHARGE PLANS. TJ IS ATTEMPTING TO GET PT IN FACILITY CLOSE TO HIS THAT MO WILL FINANCE. TJ SPOKE TO EMA AT [facility] AND GOT CONTACT INFORMATION FOR [facility] SCRATCH POLISHER GENE CORDOBA [phone] AND DIRECT LINE TO SOCIAL WORK DEPARTMENT [phone]. TJ PASSED ON THIS INFORMATION TO [facility] IN [place].
--- NOTE | 2021-03-07 15:15 | NUR ---
GT BELT, PATIENT MIN ASST TO STAND AND MIN-MOD ASST TO WALK 120 FEET USING WALKER. PATIENT AGAIN TOOK SHORT STEPS AND PUSHES WALKER TOO FAR IN FRONT OF HIM.
--- NOTE | 2021-03-07 17:48 | NUR ---
pt sitting and eating at this time. pt is calm and cooperative with staff and peers. confusion noted. can be agitated or aggressive with redirection. cont to redirect and reorient. compliant with meds, vitals and assessments. can not make needs known. requires assistance with adls 2x. continue to encourage fluids and meals. no insight noted to situation. chair and bed alarm in place and active.
[2021-03-07 20:00] VITALS: BP 122/51
--- NOTE | 2021-03-08 00:47 | NUR ---
B) Patient is alert and oriented to self,demanding and impatient at times, difficult with redirecton, I) Administered scheduled medications as ordered, monitored for safety, bed alarm in place, R) Mediation compliant, sleeping quietly in bed now, P) Continue plan of care.
[2021-03-08 08:00] VITALS: BP 137/58
--- NOTE | 2021-03-08 10:23 | NUR ---
This nurse heard an alarm and looked over and patient was sitting upright on the floor in front of his reclining w/c. I ask him if he fell and 1st he said yes then after assisting him to his w/c I re ask and he said "well, not really. I was sitting there and instead of falling I just sat down on the floor. I'm not hurt. I was resting good." Patient has full ROM and no noted limb dysformaties. He denies pain at this time.
--- NOTE | 2021-03-08 13:20 | NUR ---
PT SITTING IN CHAIR AT THIS TIME. CALM AND COOPERATIVE WITH STAFF. CONFUSION NOTED. LACKS INSIGHT TO SITUATION. REDIRECT AND REORIENT NEEDED. NO AGRESSION NOTED. ABLE TO REDIRECT PT. COMPLIANT WITH MEDS, VITALS AND ASSESSMENTS. CAN MAKE SOME NEEDS KNOWN. REQUIRES ASSISTANCE WITH ADLS. BED AND CHAIR ALARM IN PLACE AND ACTIVE. WILL CONT PLAN OF CARE.
[2021-03-08 20:00] VITALS: BP 144/51
[2021-03-09 08:58] VITALS: BP 129/65
[2021-03-09 21:23] VITALS: BP 140/53
--- NOTE | 2021-03-09 23:10 | NUR ---
PT IS ALERT AND ORIENTED TO SELF ONLY. RECEIVED IN A GERICHAIR IN THE HALLWAY OUTSIDE THE NURSES STATION. OBSERVED SOCIALIZING WITH PEERS. CALM AND COOPERATIVE. PLEASANT WITH STAFF. VERY UNSTEADY GAIT. REQUIRES MOD ASSIST WITH AMBULATION. ABLE TO VOICE MANY NEEDS AND WANTS. BED ALARM ON AND WORKING. MONITOR FOR SAFETY.
[2021-03-10 08:00] VITALS: BP 126/61
--- NOTE | 2021-03-10 10:04 | NUR ---
GT BELT, PATIENT MIN ASST TO STAND AND MIN ASST TO WALK 100 FEET USING WALKER. PATIENT TOOK BIGGER STEPS THIS SESSION, BUT STILL PUSHES WALKER TOO FAR IN FRONT OF HIMSELF.
--- NOTE | 2021-03-10 16:38 | NUR ---
PATIENT AGGRESSIVE TOWARD STAFF. GEODON 20 MG ADMIN. IM. SULEMA WELL.
--- NOTE | 2021-03-10 20:04 | NUR ---
RECEIVED IN HALLWAY, SITTING IN A ERCLINER OUTSIDE OF NURSES STATION. CALM AND COOPERATIVE WITH CARE AND ASSESSMENT. RESTLESS AT TIMES. ATTEMPTS TO STAND WITHOUT ASSIST. NO SIGNS OF AGGRESSION. REDIRECT AND REORIENT NEEDED. CONTINUES TO SIT CALMLY OUTSIDE OF NURSES STATION. CONTINUE PLAN OF CARE.
[2021-03-10 21:50] VITALS: BP 107/55
[2021-03-11 08:00] VITALS: BP 138/61
--- NOTE | 2021-03-11 10:40 | NUR ---
GT BELT, PATIENT MIN ASST TO STAND AND TO WALK 110 FEET USING WALKER WITH MIN ASST. PATIENT AGAIN PUSHES WALKER TOO FAR IN FRONT OF HIMSELF.
--- NOTE | 2021-03-11 14:40 | PN ---
PATIENT:ARLIN GRIFFITH MEDICAL RECORD: [id number] LOCATION:YESY [facility] ADMISSION DATE: 02/19/21 PROGRESS NOTE DATE OF SERVICE: 03/07/2021 SUBJECTIVE: The patient's case was discussed with staff. He has no new complaint. OBJECTIVE: The patient is in good behavioral control with poor insight about his situation. ASSESSMENT: Dementia. PLAN: Current medicines have been reviewed and will be maintained. Long-term prognosis is guarded. TRANSINT:[id number] Voice Confirmation ID: [id number] DOCUMENT ID: [id number] TADEO VAZQUEZ MD at 1440 CC: [id number] DICTATION DATE: 03/07/21 1607 FLUME WORKER: 03/07/212003 ADM IN [facility] [address] [place] [address]
--- NOTE | 2021-03-11 16:03 | NUR ---
PT IS SITTING IN RECLINING CHAIR IN DAYROOM WITH PEERS. AWAKE AND ALERT TO PERSON ONLY. ASSESSMENT COMPLETED. PRESCRIBED MEDS PROVIDED ORDERED. MED COMPLIANT. REDIRECT AND REORIENT NEEDED. PT IS RESTELSS AND BECOMES AGITATED WITH REDIRECTION AT THIS TIME. PT YELLING AND CUSSING STAFF AT THIS TIME. UNABLE TO REDIRECT. HALDOL 2MG IM GIVEN PER ORDER. FALL PRECAUTIONS IN PLACE FOR SAFETY. WILL CPOC.
--- NOTE | 2021-03-11 20:10 | NUR ---
RECEIVED IN DAYROOM.SITTING IN A RECLINER AT THE TABLE. RESTLESS AT TIMES. CONFUSED. CALM AND COOPERATIVE WITH CARE AND ASSESSMENT. NO SIGNS OF AGGRESSION. REDIRECT AND REORIENT NEEDED. CONTINUES TO SIT AT TABLE IN DINING AREA. CONTINUE PLAN OF CARE.
[2021-03-11 20:17] VITALS: BP 128/63
[2021-03-12 08:00] VITALS: BP 130/62
--- NOTE | 2021-03-12 08:09 | NUR ---
REC'D PT IN HALLWAY SITTING IN RECLINING CHAIR BY NURSES STATION. CALM AND COOPERATIVE WITH ASSESSMENT AT THIS TIME. PT CAN BE RESTLESS AT TIMES. PT BECOMES EASILY AGITATED UPON REDIRECTION. PRESCRIBED MEDS PROVIDED ORDERED. MED COMPLIANT WITH MEDS CRUSHED IN APPLE SAUCE. PT ATTEMPTS TO GET UP OUT OF CHAIR UNASSISTED. REDIRECTED PER STAFF. ALRAM IN PLACE AND WORKLY PROPERLY. FALL PRECAUTIONS IN PLACE. WILL CPOC.
--- NOTE | 2021-03-12 15:20 | PN ---
PATIENT:ARLIN GRIFFITH MEDICAL RECORD: [id number] LOCATION:JessiDEVANTEJosue [facility]le112 ADMISSION DATE: 02/19/21 PROGRESS NOTE DATE OF SERVICE: 03/11/2021 SUBJECTIVE: The patient's case was discussed with staff. He has no new complaint. OBJECTIVE: The patient is in good behavioral control with poor insight about his situation. He was aggressive and had to be p.r.n. earlier today. ASSESSMENT: Dementia. PLAN: The patient will be given Namenda at a higher dose of 0.5 mg twice daily. Namenda is being used to treat his underlying confusion. He will be monitored for clinical changes associated with its use. TRANSINT:[id number] Voice Confirmation ID: [id number] DOCUMENT ID: [id number] TADEO VAZQUEZ MD at 1520 CC: [id number] DICTATION DATE: 03/11/[address] MENDER: 03/12/21 0001 ADM IN [facility] [address] [place] [address]
[2021-03-12 19:58] VITALS: BP 133/86
--- NOTE | 2021-03-12 20:15 | NUR ---
RECEIVED IN DAYROOM. SITTING IN A CHAIR AT DINING TABLE. RESTLESS. CALM AND COOPERATIVE WITH CARE AND ASSESSMENT. NO SIGNS OF AGGRESSION. REDIRECT AND REORIENT NEEDED. CONTINUES TO RESTLESS AT TIMES. CONTINUE PLAN OF CARE.
[2021-03-13 08:00] VITALS: BP 142/62
--- NOTE | 2021-03-13 08:00 | NUR ---
REC'D PT IN HALLWAY SITTING IN RECLINING CHAIR. PT IS AWAKE AND ALERT TO PERSON ONLY. CALM AMD COOPERATIVE WITH ASSESSMENT AT THIS TIME. NO AGGRESSION NOTED AT THIS MOMENT. PT IS RESTLESS. PT CAN BECOME COMBATIVE WITH REDIRECTION AT TIMES. PRESCRIBED MEDICATIONS PROVIDED ORDERED. MED COMPLIANT. REDIRECT AND REORIENT NEEDED. PT HAS LITTLE INSIGHT INTO HIS SITUATION AT THIS TIME. FALL PRECAUTIONS IN PLACE FOR SAFETY. WILL CPOC.
--- NOTE | 2021-03-13 09:47 | PN ---
PATIENT:ARLIN GRIFFITH MEDICAL RECORD: [id number] LOCATION:YESY [facility] ADMISSION DATE: 02/19/21 PROGRESS NOTE DATE OF SERVICE: 03/12/2021 SUBJECTIVE: The patient's case was discussed with staff. He has no new complaint. OBJECTIVE: The patient is in good behavioral control with poor insight about his condition. He tolerates his medicines well. ASSESSMENT: Dementia. PLAN: The patient's current medicines have been reviewed and will be maintained. I anticipate that he can be transitioned out of the [facility] the [facility] soon. TRANSINT:[id number] Voice Confirmation ID: [id number] DOCUMENT ID: [id number] TADEO VAZQUEZ MD at 0947 CC: [id number] DICTATION DATE: 03/12/211642 ICT DEVELOPMENT MANAGER: 03/13/21 0002 ADM IN [facility] [address] [place] [address]
--- NOTE | 2021-03-13 10:19 | NUR ---
Nutrition Re-Assessment Diet: Regular [place] Thick Liquids PO intake: ~83% average x last 9 meals Last BM: 03/12/21 x 2 Wt: 135# (03/10/21); 133# (02/19/21) Meds and labs reviewed Estimated nutrition needs: [id number] carmine (25-30 ABW), 58-70gms protein (1-1.2), 1500-1800mL fluid (or per MD) Nutrition diagnosis: Swallowing difficulty r/t dysphagia dx AEB RAISIN SEPARATOR OPERATOR Rx diet of nectar thickened liquids for safe PO swallow. Nutrition goals: -PO intake =/>75% -Dry weight stable Recommendations/Interventions: -Recommend continue current diet/or per RAISIN SEPARATOR OPERATOR recommendations. -Will continue to honor food preferences within diet restrictions. -Will follow-up within 7 days.
--- NOTE | 2021-03-13 15:35 | NUR ---
GT BELT, PATIENT MIN ASST TO STAND AND TO WALK 120 FEET USING WALKER. PATIENT WOULD AGAIN PUSH WALKER TOO FAR IN FRONT OF HIM AND HAVE TO BE REMINDED TO STAY CLOSE TO WALKER.
[2021-03-13 20:00] VITALS: BP 112/49
--- NOTE | 2021-03-13 21:34 | NUR ---
PT IS ALERT AND ORIENTED TO SELF ONLY. RECEIVED IN THE DAYROOM IN A GERICHAIR RESTING WITH EYES OPEN. ABLE TO VOICE NEEDS AND WANTS. 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 COMPLIANT WITH ALL HS MEDICATIONS. EASY TO REDIRECT. MONITOR FOR SAFETY.
[2021-03-14 08:00] VITALS: BP 133/57
--- NOTE | 2021-03-14 10:32 | NUR ---
GT BELT, PATIENT MOD ASST TO STAND AND MIN ASST TO WALK 110 FEET USING WALKER. PATIENT AGAIN PUSHES WALKER TOO FAR IN FRONT OF HIM AND HAS TO BE TOLD TO GET CLOSER TO THE WALKER FOR SAFETY.
--- NOTE | 2021-03-14 14:15 | PN ---
PATIENT:ARLIN GRIFFITH MEDICAL RECORD: [id number] LOCATION:YESY [facility] ADMISSION DATE: 02/19/21 PROGRESS NOTE DATE OF SERVICE: 03/13/2021 SUBJECTIVE: The patient's case was discussed with staff. He has no new complaint. OBJECTIVE: The patient is in good behavioral control with poor insight about his situation. He does tolerate his medicines well. ASSESSMENT: Dementia. PLAN: Current medicines have been reviewed and will be maintained. Long-term prognosis is guarded. TRANSINT:[id number] Voice Confirmation ID: [id number] DOCUMENT ID: [id number] TADEO VAZQUEZ MD at 1415 CC: [id number] DICTATION DATE: 03/13/21 174 LAN SUPPORT SPECIALIST: 03/14/21 0025 ADM IN [place] [id number] [place] [address]
--- NOTE | 2021-03-14 17:50 | NUR ---
PT CALM AND COOPERATIVE WITH STAFF AT THIS TIME. NO BEHAVIORS NOTED. COMPLIANT WITH MEDS, VITALS AND ASSESSMENTS. CAN MAKE SOME NEEDS KNOWN. CHAIR ALARM IN PLACE AND ACTIVE. WILL CONT PLAN OF CARE.
[2021-03-14 20:00] VITALS: BP 123/52
--- NOTE | 2021-03-14 20:53 | NUR ---
PT IS ALERT AND ORIENTED TO SELF ONLY. PT ATTEMPTS TO GET OUT OF BED WITHOUT ASSIST AND IS VERY UNSTEADY. PT STATES "IM TRYING TO GET TO THE PHONE THAT KEEPS RINGING BUT I CANNOT FIND IT." INFORMED PT THAT IT WAS A BED ALARM AND NO PHONES ARE ALLOWED ON THE UNIT. HE VERBALIZED UNDERSTANDING AND RELATES THAT HE HOPES TO GET TO GO HOME SOON. COMPLIANT WITH ALL MEDICATIONS. PROVIDED HS SNACK. EASY TO REDIRECT. MONITOR FOR SAFETY.
[2021-03-15 08:00] VITALS: BP 140/54
--- NOTE | 2021-03-15 11:37 | NUR ---
GT BELT, PATIENT MOD ASST TO STAND AND MIN ASST TO WALK 120 FEET. PATIENT WOULD STILL PUSH WALKER TOO FAR IN FRONT OF HIM AND NEED TO BE CORRECTED ON HOW TO USE IT. PATIENT ALSO FATIGUED DURING WALK AND WOULD TRY TO LEAN DOWN ON THE WALKER.
--- NOTE | 2021-03-15 14:10 | NUR ---
w/c cushion placed in pts chair due to pt stating it was uncomfortable at this time.
--- NOTE | 2021-03-15 14:31 | NUR ---
pt sitting in chair at this time. pt is calm but restless at this time. pt conts to attempt to stand up. constant redirection. confused. alert to self only. no aggression noted. can make most needs known. compliant with meds, vitals and assessments. lacks insight to situation. requires 1x assistance with adls. chair cushion and alarm in place and active. will cont plan of care.
[2021-03-15 20:00] VITALS: BP 119/63
--- NOTE | 2021-03-16 03:32 | NUR ---
B)RECEIVED SITTING OUTSIDE THE NURSE'S STATION. CALM AND COOPERATIVE. ORIENTED TO PERSON AND PLACE. SITS AND WATCHES THE OTHERS. MINIMAL INTERACTION HOWEVER WILL SOCIALIZE WHEN APPROACHED. I)ADMINISTER MEDS AND MONITOR COMPLIANCE. REORIENT NEEDED. R)MED COMPLIANT. REORIENTS HOWEVER HAS POOR RETENTION REQUIRING REPEATED INFORMATION. P)CONTINUE POC AND PROVIDE SAFE ENVIRONMENT.
[2021-03-16 08:00] VITALS: BP 145/52
--- NOTE | 2021-03-16 15:53 | NUR ---
PT SOCIALIZING WITH PEERS AT THIS TIME. PT IS CALM AND COOPERATIVE. CONFUSION NOTED. ALERT TO SELF ONLY. REDIRECT AND REORIENT NEEDED. NO AGGRESSIVE BEHAVIOR NOTED. ABLE TO REDIRECT VERY WELL. PT COMPLIANT WITH MEDS, VITALS AND ASSESSMENTS. CHAIR ALARM IN PLACE AND ACTIVE. WILL CONT PLAN OF CARE.
[2021-03-16 20:00] VITALS: BP 165/67
--- NOTE | 2021-03-16 21:18 | NUR ---
RESPONDED TO PATIENT'S BED ALARM. UPON ENTERING HIS ROOM HE WAS LAYING ON THE FLOOR USING HIS INCENTIVE SPIRONMETER. ASSISTED TO CHAIR. WHEN ASKED WHAT WAS HE DOING PATIENT RELATED "I DON'T KNOW. I GUESS I.M JUST STUPID." DENIES PAIN. RED ABRASION NOTED TO RIGHT KNEE. VS T.98.1, BP 125/56, P69. NEURO CHECKS WNL. PAGED DR RAMIRES AT [address] RAMIRES. NO ORDERS RECEIVED. VINAY SHRESTHA, [facility] AND [facility] PRODUCTION SOUND MIXER NOTIFIED OF FALL, ATTEMPTED TO NOTIFY EMERGENCY CONTACT RADHA AMARAL WITH [facility] AND AGNES GRIFFITH UNSUCCESSFULLY. WILL CONTINUE TO MONITOR.
--- NOTE | 2021-03-17 02:06 | NUR ---
B)RECEIVED PATIENT SITTING IN A RECLINER OUTSIDE THE NURSE'S STATION. ORIENTED TO PERSON AND PLACE. WATCHES OTHERS ON THE UNIT HOWEVER IS WITHDRAWN AND DOES NOT INITIATE INTERACTION. COOPERATIVE WITH STAFF. I)ADMINISTER MEDS AND MONITOR COMPLIANCE. REORIENT NEEDED. R)MED COMPLIANT. APPEARS TO UNDERSTAND INSTRUCTIONS AND DETAILS HOWEVER IS FORGETFUL AND REQUIRES REPEATED REORIENTATION. P)CONTINUE POC AND PROVIDE SAFE ENVIRONMENT.
[2021-03-17 07:30] VITALS: BP 135/53
--- NOTE | 2021-03-17 08:00 | NUR ---
RECEIVED PATIENT SIT IN CHAIR AT THIS TIME. PATIENT IS CALM BUT RESTLESS AT THIS TIME. PATIENT WAS AWAKE AND ALERT TO PERSON ONLY. PRESCRIBED MEDICATIONS PROVIDED ORDERED. MED COMPLIANT AT THIS TIME. PATIENT REQUIRES CONSTANT REDIRECTION. CONFUSION NOTED. NO AGGRESSION NOTED AT THIS TIME. PATIENT CAN MAKE MOST NEEDS KNOWN TO STAFF AT THIS TIME. ASSESSMENT COMPLETED. PATIENT LACKS INSIGHT INTO HIS SITUATION. PATIENT REQUIRES X1 ASSIST WITH ACTIVITIES OF DAILY LIVING. CHAIR CUSHION AND ALARM IN PLACE AND ACTIVE. WILL CONTINUE PLAN OF CARE.
--- NOTE | 2021-03-17 19:33 | NUR ---
RECEIVED IN [facility]. SITTIN IN A RECLINING CHAIR WITH PEERS AT HIS SIDE. VERY CONFUSED. ATTEMPTS TO STAND WITHOUT ASSIST CONSTANTLY. CALM AND COOPERATIVE WITH CARE AND ASSESSMENT. NO SIGNS OF AGGRESSION. REDIRECT AND REORIENT NEEDED. CONTINUES TO BE RESTLESS IN RECLINER. CONTINUE PLAN OF CARE.
[2021-03-17 20:00] VITALS: BP 129/60
--- NOTE | 2021-03-18 07:45 | NUR ---
REC'D PT SITTING IN W/C BY THE NURSES STATION. AWAKE AND ALERT TO PERSON ONLY. PT IS CONFUSED AND RESTLESS. COOPERATIVE WITH ASSESSMENT AT THIS TIME. PRESCRIBED MEDICATIONS PROVIDED. MED COMPLIANT. REDIRECT AND REORIENT NEEDED. FALL PRECAUTIONS IN PLACE. WILL CPOC.
[2021-03-18 08:21] VITALS: BP 138/62
--- NOTE | 2021-03-18 08:49 | PN ---
PATIENT:ARLIN GRIFFITH MEDICAL RECORD: [id number] LOCATION:[facility]112 ADMISSION DATE: 02/19/21 PROGRESS NOTE DATE OF SERVICE: 03/14/2021 SUBJECTIVE: The patient's case was discussed with staff. He has no new complaint. OBJECTIVE: The patient denies intent to harm himself or others. He is tolerating his medicines well. ASSESSMENT: Dementia. PLAN: Current medicines have been reviewed and will be maintained. Long-term prognosis is guarded. TRANSINT:[id number] Voice Confirmation ID: [id number] DOCUMENT ID: [id number] TADEO VAZQUEZ MD at 0849 CC: [id number] DICTATION DATE: 03/14/21 164 WEIGHT RECORDER: 03/14/21 1818 ADM IN [facility] [address] [place] [address]
--- NOTE | 2021-03-18 10:39 | NUR ---
GT BELT, PATIENT MOD ASST TO STAND FROM CHAIR AND MIN-MOD ASST TO WALK 110 FEET USING WALKER. PATIENT TAKES SHORT STEPS AND HAS TO BE REMINDED TO TAKE BIGGER STEPS. PATIENT ALSO PUSHES WALKER TOO FAR IN FRONT OF HIM.
[2021-03-18 20:00] VITALS: BP 122/50
--- NOTE | 2021-03-18 23:14 | NUR ---
RECEIVED IN HALLWAY. SITTING IN A CHAIR WITH PEERS AT HIS SIDE. RESTLESS AT TIMES. ATTEPMTS TO STAND WITHOUT ASSIST. CALM AND COOPERATIVE WITH CARE AND ASSESSMENTS. NO SIGNS OF AGGRESSION. REDIRECT AND REORIENT NEEDED. RESTING IN BED WITH EYES CLOSED AT THIS TIME. CONTINUE PLAN OF CARE.
--- NOTE | 2021-03-19 11:08 | NUR ---
GT BELT, PATIENT MIN ASST TO STAND AND TO WALK 120 FEET USING WALKER. PATIENT TOOK SHORT STEPS AND KEEPS PUSHING WALKER TOO FAR IN FRONT OF HIM, NEEDING TO BE CORRECTED ON PROPER WALKER MANAGEMENT.
--- NOTE | 2021-03-19 14:29 | NUR ---
RECEIVED PATIENT SITTING IN RECLINING CHAIR IN HALLWAY BY NURSES STATION. AWAKE AND ALERT TO PERSON ONLY. CALM AND COOPERATIVE WITH ASSESSMENT AT THIS TIME. PRESCRIBE MEDICATIONS PROVIDED ORDERED. MED COMPLIANT. NO AGGRESSION NOTED AT THIS TIME. REDIRECT AND REORIENT NEEDED. FALL PRECAUTIONS IN PLACE FOR SAFETY. WILL CPOC.
[2021-03-19 20:00] VITALS: BP 126/59
--- NOTE | 2021-03-19 23:36 | NUR ---
B)RECEIVED PATIENT SITTING OUTSIDE THE NURSE'S STATION. ORIENTED TO SELF AND PLACE. GOOD EYE CONTACT. ATTEMPTS TO STAND UNASSISTED. APPROPRIATE WHEN APPROACHED BY STAFF. I)ADMINISTER MEDS AND MONITOR COMPLIANCE. REORIENT NEEDED. R)MED COMPLIANT. POOR REORIENTAITON DUE TO IMPAIRED ABILITY TO RETAIN INFORMATION. P)CONTINUE POC AND PROVIDE SAFE ENVIRONMENT.
[2021-03-20 08:19] VITALS: BP 147/50
--- NOTE | 2021-03-20 11:18 | NUR ---
GT BELT, PATIENT MIN ASST TO STAND AND MIN ASST TO WALK 110 FEET USING WALKER. PATIENT STILL PUSHES WALKER TOO FAR IN FRONT OF HIM AND TAKES SHORT STEPS.
--- NOTE | 2021-03-20 14:53 | NUR ---
Nutrition Re-Assessment Diet: Regular [place] thickened liquids PO intake: ~97% average x last 9 meals Last BM: 03/18/21 Wt: 135# (03/17/21); Admit Wt: 133# (02/19/21) Meds and labs reviewed Estimated nutrition needs: 1500-1800cal (25-30kcal/kg ABW), 58-70gms protein (1-1.2gms/kg), 1500-1800mL fluid (or per MD) Nutrition Diagnosis: Swallowing difficulty r/t dysphagia dx AEB CHASER TAR Rx diet of nectar thickened liquids for safe PO swallow. Nutrition goals: -PO intake =/>75% -Dry weight stable Recommendations/Interventions: -Recommend continue current diet/or per CHASER TAR recommendations. -Will continue to honor food preferences within diet restrictions. -Will follow-up within 7 days.
--- NOTE | 2021-03-20 17:00 | NUR ---
pt is confused. alert to self only. redirect and reorient as needed. calm and cooperative with staff. impulsive at times. thinking he has somewhere to be and needs to leave. lacks insight into situation. can make some needs known. compliant with meds, vitals and assessments. pt conts on regular with nectar thick liquids. Requires assistance with ALDS. toileting q 2 hr and prn. redness noted to buttocks. cont to apply barrier cream as needed. no agressive behavior noted. chair alarm in place and active. will cont plan of care.
[2021-03-20 20:00] VITALS: BP 151/56
--- NOTE | 2021-03-20 23:01 | NUR ---
B)RECEIVED PATIENT SITTING OUTSIDE THE NURSE'S STATION. ORIENTED TO PERSON AND PLACE. QUIET AND WITHDRAWN HOWEVER IS SOCIAL WHEN SOMEONE APPROACHES HIM. VERY POLITE AND THANKS STAFF FOR ANYTHING THEY DO FOR HIM. IF HE FEELS HE HAS DONE SOMETHING WRONG HE FEELS HE OWES MONEY AND IS VERY APOLOGETIC. CALM AND COOPERATIVE. I)ADMINISTER MEDS AND MONITOR COMPLIANCE. REORIENT NEEDED. R)MED COMPLIANT. POOR REORIENTATION DUE TO IMPAIRED ABILITY TO RETAIN INFORMATION. AT TIMES PATIENT WILL SAY "I'M JUST STUPID I GUESS." P)CONTINUE POC AND PROVIDE SAFE ENVIRONMENT.
[2021-03-21 09:17] VITALS: BP 141/58
--- NOTE | 2021-03-21 10:43 | NUR ---
GT BELT, PATIENT MOD ASST TO STAND FROM CHAIR, AND MIN ASST TO WALK 110 FEET USING WALKER. PATIENT AGAIN TAKES SHORT STEPS AND PUSHES WALKER TOO FAR IN FRONT OF HIM.
--- NOTE | 2021-03-21 14:20 | NUR ---
pt sitting at table at this time. pt is calm and cooperative. pt is confused. oriented to person only. no aggressive behavior noted. redirect and reorient as needed. compliant with meds, vitals and assessments. PT conts to work with pt. tolerated well. diet order upgraded. can make most needs known. pt eats very well. requires assistance with adls. chair alarm in place and active. will cont plan of care.
[2021-03-21 19:27] VITALS: BP 115/49
--- NOTE | 2021-03-22 04:31 | NUR ---
B)RECEIVED PATIENT SITTING IN THE DAYROOM WITH PEERS. ORIENTED TO SELF AND PLACE. COOPERATIVE AND PLEASANT. WILL ATTEMPT TO GET UP UNASSISTED. I)ADMINISTER MEDS AND MONITOR COMPLIANCE. REORIENT NEEDED. R)MED COMPLIANT. REORIENTS HOWEVER IS FORGETFUL AND REQUIRES FREQUENT REINFORCEMENT OF INFORMATION. P)CONTINUE POC AND PROVIDE SAFE ENVIRONMENT.
[2021-03-22 08:48] VITALS: BP 133/66
--- NOTE | 2021-03-22 13:55 | NUR ---
PT SITTING AT TABLE WRITING AT THIS TIME. PT IS CALM AND COOPERATIVE WITH STAFF AND PEERS. PT IS CONFUSED. EASY TO REDIRECT. NO AGGRESSION NOTED. PT CAN MAKE MOST NEEDS KNOWN. ALERT TO PERSON, PLACE. DISORIENTED TO TIME AND SITUATION. AMBULATES WITH ASSISTANCE. CONTS TO WORK WITH PHYSICAL THERAPY. CHAIR ALARM IN PLACE AND ACTIVE. WILL CONT PLAN OF CARE.
[2021-03-22 20:08] VITALS: BP 121/42
--- NOTE | 2021-03-22 20:59 | NUR ---
PT IS ALERT AND ORIENTED TO SELF AND PLACE. HE IS RECEIVED IN HIS ROOM RESTING CALMLY IN BED. ABLE TO VOICE NEEDS AND WANTS. CALM AND COOPERATIVE WITH STAFF. COMPLIANT WITH ALL MEDICATIONS. EASY TO REDIRECT. MONITOR FOR SAFETY.
[2021-03-23 07:35] VITALS: BP 128/55
--- NOTE | 2021-03-23 13:25 | NUR ---
VERY CONFUSED AND DISORIENTED.ORIENTED TO SELF ONLY.IS EASILY REDIRECTED.IS COMPLIANT WITH STAFF AND MEDS.NO AGGRESSION OBSERVED TODAY.PROPELS SELF IN WHEELCHAIR.WILL CONTINUE WITH CURRENT PLAN OF CARE,MONITOR FOR CHANGES AND SAFETY.
[2021-03-23 19:52] VITALS: BP 137/51
--- NOTE | 2021-03-23 21:33 | NUR ---
PT IS ALERT AND ORIENTED TO SELF ONLY. RECEIVED IN THE HALLWAY IN A GERICHAIR. CALM AND COOPERATIVE WITH STAFF. COMPLIANT WITH ALL MEDICATIONS. 1 PERSON ASSIST WITH TRANSFERS. EASY TO REDIRECT. BED ALARM ON AND WORKING. MONITOR FOR SAFETY.
[2021-03-24 07:30] VITALS: BP 140/64
--- NOTE | 2021-03-24 08:30 | NUR ---
RECEIVED IN PATIENT ROOM. SITTING ON SIDE OF BED. CALM AND COOPERATIVE WITH CARE AND ASSESSMENT. CONTINUOUSLY ATTEMPTING TO GET UP WITHOUT ASSISTANCE. ATTEMPTING TO TURN SANDRA ALARM OFF. BECOMES SLIGHTLY AGITATED WITH REDIRECTION. NO AGGRESSION NOTED THIS MORNING. REDIRECT AND REORIENT NEEDED. EATING BREAKFAST AT THIS TIME. CONTINUE PLAN OF CARE.
--- NOTE | 2021-03-24 14:34 | NUR ---
Rec'd patient this am up in the hallway in a reclining w/c. He is med compliant and takes meds whole, He is A/O to person and situation but has moments of confusion. He is calm but has been aggitated today and will not sit in his w/c and he sets off the alarm with all movement and it has begun to upset and irritae some of the other patients. He is not directable or redirectable today. He has a red shear to his buttocks that we use calmoseptine and butt paste after every bowel movement.
--- NOTE | 2021-03-24 19:44 | NUR ---
RECEIVED IN DAYROOM. SITTING AT THE TABLE WITH A PEERS. RESTLESS. ATTEMPTS TO STAND WITHOUT ASSIST.SANDRA ALARM SOUNDING. CONFUSED. CALM AND COOPERATIVE WITH CARE AND ASSESSMENT. NO SIGNS OF AGGRESSION. REDIRECT AND REORIENT NEEDED. SITTING IN HALLWAY IN RECLINER AT THIS TIME. CONTINUES TO ATTEMPT TO STAND WITHOUT ASSIST. CONTINUE PLAN OF CARE.
[2021-03-24 20:20] VITALS: BP 130/49
[2021-03-25 08:00] VITALS: BP 136/71
--- NOTE | 2021-03-25 11:19 | NUR ---
GT BELT, PATIENT MIN ASST TO STAND AND MIN ASST TO WALK 120 FEET USING WALKER. PATIENT DOES PUSH WALKER TOO FAR IN FRONT OF HIM AND HAD TO BE HELPED TO CORRECTLY USE THE WALKER.
--- NOTE | 2021-03-25 16:35 | NUR ---
ORIENTED TO SELF ONLY.VERY POOR SHORT TERM MEMORY.WILL ASK THE SAME QUESTION OVER AND OVER.COMPLIANT WITH STAFF AND MEDS.TAKES MEDS WHOLE.AMBULATES WITH PT,HAS VERY POOR ,UNSTEADY GAIT.NO AGGRESSION OBSERVED.WILL CONTINUE WITH CURRENT PLAN OF CARE,MONITOR FOR CHANGES AND SAFETY.
--- NOTE | 2021-03-25 19:50 | NUR ---
B)RECEIVED PATIENT SITTING OUTSIDE THE NURSE'S STATION. ORIENTED TO PERSON AND PLACE. FREQUENTLY ATTEMPTS TO GET UP UNASSISTED. PLEASANT AND INTERACTS WITH STAFF. WITHDRAWN AROUND PEERS. I)ADMINISTER MEDS AND MONITOR COMPLIANCE. REORIENT NEEDED. R)MED COMPLIANT. REORIENTS HOWEVER IS FORGETFUL AND REQUIRES REORIENTATION. COOPERATIVE HOWEVER CONTINUES TO TRY AND GET OUT OF CHAIR WITHOUT ASSISTANCE. P)CONTINUE POC AND PROVIDE SAFE ENVIRONMENT.
[2021-03-25 20:00] VITALS: BP 120/73
[2021-03-26 08:02] VITALS: BP 126/63
[2021-03-26] MEDS ORDERED: LEXAPRO10 MG PO (09:00)
[2021-03-26] MEDS ORDERED: NAMENDA5 MG PO (09:00)
[2021-03-26] MEDS ORDERED: TRAZODONE HCL50 MG PO (09:00)
[2021-03-26] MEDS ORDERED: GEODON20 MG PO (09:01)
--- NOTE | 2021-03-26 10:36 | NUR ---
WALKED 170 FT WITH WALKER WILL LEAN FORWARD AND STICKS THE WALKER OUT USED GT BELT
--- NOTE | 2021-03-26 18:29 | NUR ---
VERY CONFUSED AND DISORIENTED.IS COMPLIANT WITH STAFF AND MEDS.TAKES MEDS WHOLE.NO AGGRESSION OBSERVED.WILL CONTINUE WITH CURRENT PLAN OF CARE,MONITOR FOR CHANGES AND SAFETY.
[2021-03-26 20:15] VITALS: BP 113/43
--- NOTE | 2021-03-27 02:39 | NUR ---
B) Patient is alert and oriented to person, very confused and unaware of where he is or why he is here, I) Administered scheduled medications as ordered, monitored for safety R) Medication compliant, calm and socialable P) Continue plan of care.
[2021-03-27 08:00] VITALS: BP 104/62
--- NOTE | 2021-03-27 11:10 | NUR ---
GT BELT, PATIENT MIN ASST TO STAND FROM CHAIR AND MIN ASST TO WALK 120 FEET USING WALKER. PATIENT PUSHES WALKER TOO FAR IN FRONT OF HIM AND TAKE SHORT STEPS, HAS TO BE TOLD TO STAY INSIDE WALKER FOR SAFETY REASONS EVERY SO OFTEN.
--- NOTE | 2021-03-27 14:50 | NUR ---
Nutrition Re-Assessment C[facility] C[facility] DIRECTOR signed off and upgraded patient diet to thin liquids 03/22/21. Diet: Regular PO intake: ~95% average x last 9 meals Last BM: 03/27/21 Wt: 133.6# (03/24/21); Admit Wt: 133# (02/19/21) Meds reviewed, no new chem labs Estimated nutrition needs: 1500-1800cal (25-30kcal/kg Act), 58-70gms protein (1-1.2gms/kg), 1500-1800mL fluid (or per MD) Nutrition diagnosis: Potential for inadequate energy intake r/t AMS and advanced age and recent history of swallowing difficulty. Nutrition goals: -PO intake =/>75% meals -Meet fluid needs -Stable weight DHS Recommendations/Interventions: -Recommend continue Regular diet. Will continue to honor food preferences. -RD will continue to monitor PO intake and wt trend. -RD will follow-up within 7 days.
--- NOTE | 2021-03-27 15:12 | NUR ---
Rec'd patient this am in hallway in a recling w/c. He is med compliant and takes meds whole. He is a/o times [address] He has attempted several times to rise from his reclining w/c. He is unable to transfer or ambulate independently. He is constantly reminded to stay seated amd await for staff to assist. He has been today picking up other patients cups, incentive spirometer and putting these items to his mouth. Patient reqires a lot of direction and redirection. Patient is a fall risk and requires a pressure sentsitive alarm in his bed and wheelchair.This morning, this patient was being interruptive to staff and when staff would attempt to dicuss personal issures with them, then he would interrupt the conversation and proceed to give his opinion and would get louder and louder with his voice tone.
--- NOTE | 2021-03-27 15:22 | PN ---
PATIENT:ARLIN GRIFFITH MEDICAL RECORD: [id number] LOCATION:YESY [facility]112 ADMISSION DATE: 02/19/21 PROGRESS NOTE DATE OF SERVICE: 03/26/2021 SUBJECTIVE: The patient's case was discussed with staff. He has no new complaint. OBJECTIVE: The patient is in good behavioral control with poor insight about his situation. ASSESSMENT: Dementia. PLAN: The patient is to be discharged today; however, there appears to be some paperwork problems and it may end up being tomorrow. TRANSINT:[id number] Voice Confirmation ID: [id number] DOCUMENT ID: [id number] TADEO VAZQUEZ MD at 1522 CC: [id number] DICTATION DATE: 03/26/21 1620 COMMUNICATIONS AND SIGNALS SUPERVISOR: 03/27/21 0334 ADM IN [facility] [address] [place] [address]
--- NOTE | 2021-03-27 15:22 | PN ---
PATIENT:ARLIN GRIFFITH MEDICAL RECORD: [id number] LOCATION:[facility] ADMISSION DATE: 02/19/21 PROGRESS NOTE DATE OF SERVICE: 03/25/2021 SUBJECTIVE: The patient's case was discussed with staff. He has no new complaint. OBJECTIVE: The patient is in good behavioral control with limited insight about his condition. He is not aggressive. ASSESSMENT: Dementia. PLAN: I anticipate the patient can be transitioned out of the hospital soon. His long-term prognosis is guarded. TRANSINT:[id number] Voice Confirmation ID: [id number] DOCUMENT ID: [id number] TADEO VAZQUEZ MD at 1522 CC: [id number] DICTATION DATE: 03/25/21 1513 GASOLINE ATTENDANT: 03/27/21 0038 ADM IN [facility] [address] [place] [address]
[2021-03-27 20:00] VITALS: BP 143/59
--- NOTE | 2021-03-27 21:30 | NUR ---
PT IS ALERT AND ORIENTED TO SELF ONLY. RECEIVED IN THE DAYROOM. RESTLESS AT TIMES. COOPERATIVE WITH STAFF. COMPLIANT WITH ALL MEDICATIONS. EASY TO REDIRECT BUT REQUIRES CONSTANT REDIRECTION. PLEASANT WITH STAFF. MONITOR FOR SAFETY.
--- NOTE | 2021-03-28 10:45 | NUR ---
[facility] called to if there was a tentive d/c date for pt. nurse stated pt would be d/c today to [facility]. she stated would it be a ad terminal makeup operator visit. nurse stated it would be a ad terminal makeup operator care for pt. she thanked nurse at this time.
--- NOTE | 2021-03-28 11:47 | NUR ---
ALERT, CALM, PLEASANT, COOPERATIVE. NO ADVERSE BEHAVIORS NOTED. MEDS ADMIN PER ORDERS WITH COMPLETE MED COMPLIANCE NOTED. STATED THAT HE WAS GOING TO DISCHARGE LATER TODAY. CONTINUE PLAN OF CARE WITH DISCHARGE PLANNED FOR LATER IN THE SHIFT.
[2021-03-28 11:58] VITALS: BP 170/80
--- NOTE | 2021-03-28 12:36 | NUR ---
NURSE CALLED REPORT TO [facility] TO JANUARY, DRUG AND ALCOHOL TREATMENT SPECIALIST. NURSE GAVE BRIEF HISTORY, BM, CODE STATUS, MED COMPLIANCE, AMBULATION STATUS, REDNESS NOTED TO BUTTOCKS, PT WORKS WITH PT, RESTLESS, ONE TIME FALL WHILE ADMITTED, ALLERGIES, SUPPLEMENT WITH MEALS, EGG CRATE IN W/C, ALERT TO SELF ONLY BUT PLESANT, AND CALLBACK NUMBER GIVEN.
--- NOTE | 2021-03-28 13:30 | NUR ---
pt d/c with [facility] at this time. nurse and mht rolled out in w/c. pt was in a good mood smiling. stated [facility] been there before i remember it being a nice facility. pt was excited to pt d/c this shift. all paperwork given to d/c person and all personal belongings given to pt at this time. paperwork faxed to facility and paper copy sent with pt. staff assisted into van. callback number sent with pt at this time. POA information given to d/c person as well.
--- NOTE | 2021-03-28 13:41 | NUR ---
GT BELT, PATIENT MIN ASST TO STAND AND TO WALK 120 FEET USING WALKER.
--- NOTE | 2021-03-28 15:24 | PN ---
PATIENT:ARLIN GRIFFITH MEDICAL RECORD: [id number] LOCATION:YESY [facility]112 ADMISSION DATE: 02/19/21 PROGRESS NOTE DATE OF SERVICE: 03/27/2021 SUBJECTIVE: The patient's case was discussed with staff. He has no new complaint. OBJECTIVE: The patient is ready for discharge, but placement is being complicated by various regulatory issues. He will be monitored for clinical changes with his current medicines and discharged as soon as these arrangements can be corrected. TRANSINT:[id number] Voice Confirmation ID: [id number] DOCUMENT ID: [id number] TADEO VAZQUEZ MD at 1524 CC: [id number] DICTATION DATE: 03/27/21 164 LICENSED EMBALMER: 03/28/21 0026 DIS IN 03/28/21 [facility] [address] [place] [address]
== END 2021-03-28 12:45 | DRG 884 ==
LOC: D.ER 13:01 → D.PSYCH 19:24
PROVIDERS: Family Medicine; ADMIT Psychiatry & Neurology Psychiatry; ATTEND Psychiatry & Neurology Psychiatry
DX: F03.90 Unspecified dementia, unspecified severity, without behavioral disturbance, psychotic disturbance, mood disturbance, and anxiety (principal); N39.0 Urinary tract infection, site not specified; Z20.822 Contact with and (suspected) exposure to COVID-19; I10 Essential (primary) hypertension; E78.5 Hyperlipidemia, unspecified; M19.90 Unspecified osteoarthritis, unspecified site; N40.0 Benign prostatic hyperplasia without lower urinary tract symptoms; E55.9 Vitamin D deficiency, unspecified; E87.6 Hypokalemia; J31.0 Chronic rhinitis; E53.8 Deficiency of other specified B group vitamins